=== PATIENT | female | born 1960 | race Caucasian/White ===

== ENCOUNTER → 2018-07-19 | Outpatient (CLI) | payer OTHER | END | disposition home or self-care (01) | LOC: LAB EV 16:14 → LAB SHORT 16:14 | DX: L08.89 Other specified local infections of the skin and subcutaneous tissue (principal) | CPT/HCPCS: 87070; 87075; 87077; 87147; 87186; 87205 ==

== ENCOUNTER → 2018-10-26 | Outpatient (CLI) | payer OTHER ==
[2018-10-30 15:07] LABS: HPV 16 Negative (Negative); HPV 18 Negative (Negative); HPV OTHER HR TYPES Positive (Negative)
== END | disposition home or self-care (01) ==
LOC: LAB 16:33 → LAB SHORT 16:33
PROVIDERS: Nurse Practitioner Women's Health
DX: Z12.4 Encounter for screening for malignant neoplasm of cervix (principal); Z91.89 Other specified personal risk factors, not elsewhere classified
CPT/HCPCS: 87624; 87625; G0123

== ENCOUNTER → 2018-11-09 | Outpatient (CLI) | payer OTHER ==
[2018-11-09 15:04] LABS: Creatinine, Urine Random 88.3 mg/dL (27.00-270.00); Protein, Urine Random 10.8 mg/dL (0.0-11.9)
== END | disposition home or self-care (01) ==
LOC: LAB 13:55 → LAB SHORT 13:55
PROVIDERS: Internal Medicine
DX: N18.3 Chronic kidney disease, stage 3 (moderate) (principal)
CPT/HCPCS: 82570; 84156

== ENCOUNTER 2020-01-10 17:24 | Inpatient (IN) | payer OTHER ==
[~2020-01-10] VITALS: Ht 162.6 cm; Wt 82.9 kg
[2020-01-10] MEDS ORDERED: PROG100 PO (18:29)
[2020-01-10] MEDS ORDERED: LIPITOR80 MG PO (18:29)
[2020-01-10] MEDS ORDERED: LOSARTAN POTASS25 M2 PO (18:29)
[2020-01-10] MEDS ORDERED: OZEMPIC0.25 MG/0. PO (18:29)
[2020-01-10] MEDS ORDERED: PLAVIX75 MG PO (18:29)
[2020-01-10] MEDS ORDERED: BUPROPION XL150 M1 PO (18:30)
[2020-01-10] MEDS ORDERED: METO50ER PO (18:31)
[2020-01-10] MEDS ORDERED: Isosorbide Mono60 MG PO (18:31)
[2020-01-10 18:32] LABS: BASOPHILS ABSOLUTE AUTO 0.08 K/mm3 (0.00-0.23); BASOPHILS PERCENT AUTO 1 % (0-2); EOSINOPHILS ABSOLUTE AUTO 0.24 K/mm3 (0.00-0.68); EOSINOPHILS PERCENT AUTO 2 % (0-6); Hematocrit 40.9 % (33.0-51.0); Hemoglobin 13.1 g/dL (11.5-16.0); IMMATURE GRAN ABSOLUTE AUTO 0.04 K/mm3 (0.00-0.10); IMMATURE GRAN PERCENT AUTO 0 % (0-1); LYMPHOCYTES ABSOLUTE AUTO 2.43 K/mm3 (0.84-5.20); LYMPHOCYTES PERCENT AUTO 23 % (21-46); MONOCYTES ABSOLUTE AUTO 0.92 K/mm3 (0.16-1.47); MONOCYTES PERCENT AUTO 9 % (4-13); Mean Corpuscular HGB 29.4 pg (26.0-34.0); Mean Corpuscular Volume 92 fL (80-100); Mean Platelet Volume 9.7 fL (9.1-12.4); NEUTROPHILS ABSOLUTE AUTO 7.02 K/mm3 (1.96-9.15); NEUTROPHILS PERCENT AUTO 66 % (41-73); Platelet Count 269 K/mm3 (150-400); RDW Coefficient Variation 16.1 % (11.7-14.2); Red Blood Cell Count 4.46 M/mm3 (3.80-5.20); White Blood Cell Count 10.73 K/mm3 (4.00-11.30)
[2020-01-10 18:59] LABS: Albumin, Blood 3.5 g/dL (3.4-5.0); Albumin/Globulin Ratio 0.9 (0.8-1.8); Bilirubin, Total 1.1 mg/dL (0.1-1.0); Bun/Creatinine Ratio 22.1 (12.0-20.0); Calcium, Blood 9.2 mg/dL (8.5-10.1); Creatinine, Blood 1.04 mg/dL (0.40-1.00); Globulin, Blood 3.7 g/dL (2.2-4.0); Potassium, Blood 4.5 mmol/L (3.5-5.5); Total Protein, Blood 7.2 g/dL (6.4-8.2)
[2020-01-10 19:02] LABS: Troponin I 0.459 ng/mL (0.000-0.040)
[2020-01-10] MEDS ORDERED: SITA100T2 PO (21:05)
[2020-01-10] MEDS ORDERED: Fish Oil Conc1000 MG PO (21:06)
[2020-01-10] MEDS ORDERED: Vitamin D2000 UNIT PO (21:06)
[2020-01-10] MEDS ORDERED: OMEP20ER PO (21:06)
[2020-01-10] MEDS ORDERED: Aspirin EC81 MG PO (21:06)
[2020-01-10 23:08] LABS: D-Dimer, Quantitative 2.97 mg/L FEU (0.00-0.52)
[2020-01-10 23:14] LABS: Troponin I 0.474 ng/mL (0.000-0.040)
--- NOTE | 2020-01-11 05:34 | NUR ---
SHIFT SUMMARY PT NEW ED ADMIT THIS EVENING. PT SOB WITH EXERTION. O2 SATS IN THE MID 80'S ON 2 L WHEN ARRIVING TO ROOM. PT PLACED ON 4-5 L TO GET O2 SATS GREATER THAN 90%. PT ABLE TO AMBULATE WELL TO THE RESTROOM. TAKES A FEW MOMENTS TO RECOVER WITH SOB ONCE BACK TO BED. PT DOES REPORT SOME CHEST PAIN THAT SHE DESCRIBES MORE LIKE "LUNG PAIN". MORE PAINFUL WITH DEEP BREATHS. MEDICATED X 1 W/ FENTANYL 25 MCG WHICH PT REPORTED WAS EFFECTIVE. D-DIMER ELEVATED THIS EVENING. PT TAKEN FOR CT FOR R/O PE. HEPARIN DRIP STARTED ALSO DUE TO PT'S ANGINA AND HX OF TX W/ STENTS. TELEMETRY SR W/ PAC'S IN THE 80'S. LASIX GIVEN PER ORDERS WITH GOOD OUTPUT THIS SHIFT. PT RESTING IN BED AT THIS TIME. VITAL SIGNS STABLE. WILL CONTINUE TO MONITOR AND REPORT TO DAY RN.
[2020-01-11 09:01] LABS: Albumin, Blood 3.5 g/dL (3.4-5.0); Bilirubin, Total 1.3 mg/dL (0.1-1.0); Bun/Creatinine Ratio 20.6 (12.0-20.0); Calcium, Blood 9.2 mg/dL (8.5-10.1); Creatinine, Blood 1.26 mg/dL (0.40-1.00); Globulin, Blood 3.5 g/dL (2.2-4.0); Potassium, Blood 3.9 mmol/L (3.5-5.5); Troponin I 0.42 ng/mL (0.000-0.040)
[2020-01-11 09:54] LABS: Hematocrit 40.6 % (33.0-51.0); Hemoglobin 12.7 g/dL (11.5-16.0); Mean Corpuscular HGB 29.1 pg (26.0-34.0); Mean Corpuscular HGB Conc 31.3 g/dL (31.5-36.5); Mean Corpuscular Volume 93 fL (80-100); Mean Platelet Volume 10.3 fL (9.1-12.4); Platelet Count 264 K/mm3 (150-400); RDW Standard Deviation 54.2 fL (35.1-46.3); Red Blood Cell Count 4.37 M/mm3 (3.80-5.20)
--- NOTE | 2020-01-11 11:32 | NUR ---
DR. MADRID AT BEDSIDE. PATIENT CONSENTED FOR ANGIOGRAM LATER TODAY. HEPARIN GTT STOPPED PER HIS VERBAL ORDER; PAM IN PHARMACY NOTIFIED VIA [employer].
--- NOTE | 2020-01-11 16:13 | NUR ---
Echocardiogram completed.
--- NOTE | 2020-01-11 18:17 | NUR ---
SHIFT SUMMARY PT ALERT AND ORIENTED. VS STABLE. HR NSR. BP STABLE. PT DENIES ANY CP/PRESSURE. RIGHT RADIAL SITE FREE FROM ANY BRUISING, BLEEDING, OR HEMATOMA NOTED. 4ML OF AIR HAVE BEEN REMOVED FROM TR BAND. PT SITTING UP EATING DINNER. WILL CONTINUE TO MONITOR AND REPORT TO ONCOMING RN. CALL LIGHT IN REACH.
--- NOTE | 2020-01-12 05:35 | NUR ---
END OF SHIFT SUMMARY NO ACUTE CHANGES THIS SHIFT. VSS. TR BAND FULLY RECOVERED AND REMOVED AT 1999. REMAINS ON 3LNC. REMAINS SR. DENIES CP/PRESSURE EXCEPT FOR INSTANCE AT 0400, NITRO PER EMAR. OTHERWISE, PT HAS BEEN RESTING OFF AND ON T/O THE SHIFT AND HAS BEEN UP AND OUT OF BED AT TIMES. WILL CONTINUE TO MONITOR UNTIL SHIFT CHANGE.
--- NOTE | 2020-01-12 19:41 | NUR ---
SHIFT SUMMARY PT A&Ox4; CALM AND COOPERATIVE WITH CARE. PT RESTING IN BED FOR MAJORITY OF SHIFT, UP IND IN ROOM. PT ON 3L O2 VIA NC THIS AM, TITRATED TO 1L PT C/O CHEST TIGHTNESS; TITRATED TO 2L O2 VIA NC WITH RELEIFE. HOME O2 EVAL COMPLTED WITH PLANS FOR DISCHARGE TOMORROW; 2L O2 VIA NC AT ALL TIMES, FORMS FAXED TO [facility] THIS AFTERNOON. PT REPORTS SOB WITH ACTIVITY. PT DENIES PAIN, NAUSEA AND DIZZINESS T/O SHIFT. PT RECEIVIGN IV LASIX; EDUCATED PT ON I&O AND ENCOURAGED PT TO USE HAT TO MEASURE OUTPUT. VSS. NO OTHER ACUTE CHANGES NOTED DURING SHIFT. REPORT GIVEN TO ONCOMING RN.
[2020-01-13 04:44] LABS: Bun/Creatinine Ratio 26.2 (12.0-20.0); Calcium, Blood 9.1 mg/dL (8.5-10.1); Creatinine, Blood 1.45 mg/dL (0.40-1.00); Potassium, Blood 3.7 mmol/L (3.5-5.5)
--- NOTE | 2020-01-13 07:12 | NUR ---
SHIFT SUMMARY PATIENT PLEASENT AND COOPERATIVE THROUGHOUT THE NIGHT. PATIENT INDEPENDENT IN ROOM. PATIENT MEDICATED FOR PAIN PER EMAR. PATIENT APPEARED TO SLEEP WELL LAST NIGHT. PATIENT ON 2-4L OF O2 DEPENDING ON ACTIVITY. REPORT GIVEN TO ONCOMING RN.
[2020-01-13] MEDS ORDERED: POTCHL20ER PO (12:55)
[2020-01-13] MEDS ORDERED: FURO40 PO (12:55)
--- NOTE | 2020-01-13 15:27 | NUR ---
DISCHARGE SUMMARY PT A&Ox4; CALM AND COOPERATIVE WITH CARE. PT RESTING IN BED; UP IND IN ROOM. PT DENIES PAIN; CHEST PAIN/PRESSURE; NAUSEA AND DIZZZINESS. PT SOB WITH EXERTION; ON 2L O2 VIA NC AT ALL TIMES; HOME O2 EVAL COMPLETED AND PORTABLE O2 TANKS PROVIDED FROM [facility]. TELE SR 60-70'S. PT RECEIVING IV LASIS. BP THIS AFTERNOON TRENDING DOWN, MAP 55; ASSYMPTOMATIC; NOTIFIED DR HUYNH; NO NEW ORDERS; CONTINUE WITH DISCHARGE PLANS. OTHER VSS. NO OTHER ACUTE CHANGES NOTED DURING SHIFT. EDUCATED PT ON DISCHARGE INSTRUCTIONS; MEDICATIONS AND FOLLOW UP APPOINTMENTS. PT EDUCATED ON ACTIVITY LEVELS; TO REST; PT STATES SHE HAS MULTIPLE FAMILY MEMEBERS TO ASSIST HER AT HOME AND NO DRIVING UNTIL CLEARED FROM CARDIOLOGY. PRESCRIPTIONS CALLED INTO [facility]. PT LEFT ROOM VIA WHEELCHAIR AT 1355.
== END 2020-01-13 13:05 | disposition home or self-care (01) | DRG 280 ==
LOC: ER 17:24 → MEDS 20:32 → PCU 01-11 15:28
PROVIDERS: Internal Medicine; Physician Assistant; ADMIT Internal Medicine
PROC: 4A020N7 Measurement of Cardiac Sampling and Pressure, Left Heart, Open Approach (ICD-10-PCS; principal; 2020-01-11)
PROC: B2111ZZ Fluoroscopy of Multiple Coronary Arteries using Low Osmolar Contrast (ICD-10-PCS; 2020-01-11)
DX: I21.4 Non-ST elevation (NSTEMI) myocardial infarction (principal); J96.01 Acute respiratory failure with hypoxia; I13.0 Hypertensive heart and chronic kidney disease with heart failure and stage 1 through stage 4 chronic kidney disease, or unspecified chronic kidney disease; J81.1 Chronic pulmonary edema; I25.10 Atherosclerotic heart disease of native coronary artery without angina pectoris; J43.9 Emphysema, unspecified; E78.5 Hyperlipidemia, unspecified; E11.22 Type 2 diabetes mellitus with diabetic chronic kidney disease; N18.3 Chronic kidney disease, stage 3 (moderate); I50.9 Heart failure, unspecified; I08.1 Rheumatic disorders of both mitral and tricuspid valves; R09.02 Hypoxemia; Z95.2 Presence of prosthetic heart valve; Z87.01 Personal history of pneumonia (recurrent); Z95.5 Presence of coronary angioplasty implant and graft; Z87.891 Personal history of nicotine dependence; E66.9 Obesity, unspecified; Z68.30 Body mass index [BMI] 30.0-30.9, adult
CPT/HCPCS: 36415; 71045; 71260; 76937; 80048; 80053; 82550; 82947; 83690; 83880; 84484; 85025; 85027; 85379; 85730; 93005; 93010; 93306; 93454; 94644; 94660; 94761; 94762; 96374; 99152; 99153; 99285-25; A9270; A9270-GY; C1769; C1894; J1644; J1650; J1885; J1940; J2250; J3010; J7030; Q9967

== ENCOUNTER 2020-02-25 09:25 | Emergency (ER) | payer OTHER ==
[~2020-02-25] VITALS: Ht 162.6 cm; Wt 73.5 kg
[~2020-02-25 09:25] MED LIST: Aspirin EC81 MG PO; BUPROPION XL150 M1 PO; FURO40 PO; Fish Oil Conc1000 MG PO; Isosorbide Mono60 MG PO; LIPITOR80 MG PO; LOSARTAN POTASS25 M2 PO; METO50ER PO; OMEP20ER PO; OZEMPIC0.25 MG/0. PO; PLAVIX75 MG PO; POTCHL20ER PO; PROG100 PO; SITA100T2 PO; Vitamin D2000 UNIT PO
[2020-02-25 10:13] LABS: BASOPHILS ABSOLUTE AUTO 0.03 K/mm3 (0.00-0.23); BASOPHILS PERCENT AUTO 0 % (0-2); EOSINOPHILS ABSOLUTE AUTO 2.17 K/mm3 (0.00-0.68); EOSINOPHILS PERCENT AUTO 20 % (0-6); Hematocrit 35.2 % (33.0-51.0); Hemoglobin 10.8 g/dL (11.5-16.0); IMMATURE GRAN ABSOLUTE AUTO 0.04 K/mm3 (0.00-0.10); IMMATURE GRAN PERCENT AUTO 0 % (0-1); LYMPHOCYTES ABSOLUTE AUTO 1.54 K/mm3 (0.84-5.20); LYMPHOCYTES PERCENT AUTO 14 % (21-46); MONOCYTES ABSOLUTE AUTO 0.79 K/mm3 (0.16-1.47); MONOCYTES PERCENT AUTO 7 % (4-13); Mean Corpuscular HGB 30.2 pg (26.0-34.0); Mean Corpuscular HGB Conc 30.7 g/dL (31.5-36.5); Mean Corpuscular Volume 98 fL (80-100); Mean Platelet Volume 8.8 fL (9.1-12.4); NEUTROPHILS ABSOLUTE AUTO 6.18 K/mm3 (1.96-9.15); NEUTROPHILS PERCENT AUTO 58 % (41-73); Platelet Count 428 K/mm3 (150-400); RDW Coefficient Variation 20.3 % (11.7-14.2); Red Blood Cell Count 3.58 M/mm3 (3.80-5.20); White Blood Cell Count 10.75 K/mm3 (4.00-11.30)
[2020-02-25 10:32] LABS: Albumin, Blood 3.2 g/dL (3.4-5.0); Albumin/Globulin Ratio 0.8 (0.8-1.8); Bilirubin, Total 0.8 mg/dL (0.1-1.0); Bun/Creatinine Ratio 13.2 (12.0-20.0); Calcium, Blood 9.1 mg/dL (8.5-10.1); Creatinine, Blood 1.29 mg/dL (0.40-1.00); Potassium, Blood 3.5 mmol/L (3.5-5.5); Total Protein, Blood 7.2 g/dL (6.4-8.2)
[2020-02-25 10:35] LABS: Prothrombin Time Results 67.9 Sec (9.7-11.5)
[2020-02-25 10:42] LABS: International Normalized Ratio 7.09
[2020-02-25 10:44] LABS: Troponin I 0.547 ng/mL (0.000-0.040)
== END 2020-02-25 14:12 | disposition home or self-care (01) ==
LOC: ER 09:25
PROVIDERS: Emergency Medicine
DX: R07.9 Chest pain, unspecified (principal); M54.9 Dorsalgia, unspecified; R79.1 Abnormal coagulation profile; Z87.891 Personal history of nicotine dependence
CPT/HCPCS: 36415; 71046; 80053; 83690; 83880; 84484; 85025; 85610; 93005; 93010; 96374; 99285-25; J2405

== ENCOUNTER 2021-04-09 08:19 | Day surgery (SDC) | payer OTHER ==
[~2021-04-09] VITALS: Ht 160 cm; Wt 75.2 kg
[2021-04-09] MEDS ORDERED: ENOX60I (09:08)
[2021-04-09] MEDS ORDERED: OZEMPIC1 MG/0.72 SC (09:08)
[2021-04-09] MEDS ORDERED: WARF3 PO (09:08)
--- NOTE | 2021-04-09 09:12 | NUR ---
04/09/21 0912 Ben Brock CALL LIGHT WITHIN REACH
== END 2021-04-09 11:08 | disposition home or self-care (01) ==
LOC: ORSCSDS 08:19
PROVIDERS: Obstetrics & Gynecology
PROC: 0UBC7ZX Excision of Cervix, Via Natural or Artificial Opening, Diagnostic (ICD-10-PCS; principal; 2021-04-09 09:45)
DX: R87.810 Cervical high risk human papillomavirus (HPV) DNA test positive (principal); N72 Inflammatory disease of cervix uteri; I21.9 Acute myocardial infarction, unspecified; I25.2 Old myocardial infarction; E11.22 Type 2 diabetes mellitus with diabetic chronic kidney disease; I12.9 Hypertensive chronic kidney disease with stage 1 through stage 4 chronic kidney disease, or unspecified chronic kidney disease; N18.30 Chronic kidney disease, stage 3 unspecified; J44.9 Chronic obstructive pulmonary disease, unspecified; K21.9 Gastro-esophageal reflux disease without esophagitis; Z79.82 Long term (current) use of aspirin; Z79.899 Other long term (current) drug therapy
CPT/HCPCS: 82947; 88305; J0171; J0690; J2704; J3010; J7120

== ENCOUNTER 2025-01-24 18:56 | Emergency (ER) | payer OTHER ==
[~2025-01-24] VITALS: Ht 165.1 cm; Wt 68.0 kg
[~2025-01-24 18:56] MED LIST changes: +ENOX60I; +OZEMPIC1 MG/0.72 SC; +WARF3 PO
[2025-01-24 19:52] LABS: BASOPHILS ABSOLUTE AUTO 0.06 K/mm3 (0.00-0.23); BASOPHILS PERCENT AUTO 1 % (0-2); EOSINOPHILS ABSOLUTE AUTO 0.23 K/mm3 (0.00-0.68); EOSINOPHILS PERCENT AUTO 3 % (0-6); Hematocrit 43.1 % (33.0-51.0); Hemoglobin 13.7 g/dL (11.5-16.0); IMMATURE GRAN ABSOLUTE AUTO 0.03 K/mm3 (0.00-0.10); IMMATURE GRAN PERCENT AUTO 0 % (0-1); LYMPHOCYTES ABSOLUTE AUTO 2.17 K/mm3 (0.84-5.20); LYMPHOCYTES PERCENT AUTO 28 % (21-46); MONOCYTES ABSOLUTE AUTO 0.59 K/mm3 (0.16-1.47); MONOCYTES PERCENT AUTO 8 % (4-13); Mean Corpuscular HGB 27.7 pg (26.0-34.0); Mean Corpuscular HGB Conc 31.8 g/dL (31.5-36.5); Mean Corpuscular Volume 87 fL (80-100); Mean Platelet Volume 8.8 fL (9.1-12.4); NEUTROPHILS ABSOLUTE AUTO 4.77 K/mm3 (1.96-9.15); NEUTROPHILS PERCENT AUTO 61 % (41-73); Platelet Count 283 K/mm3 (150-400); RDW Coefficient Variation 15.4 % (11.7-14.2); Red Blood Cell Count 4.94 M/mm3 (3.80-5.20); White Blood Cell Count 7.85 K/mm3 (4.00-11.30)
[2025-01-24 20:14] LABS: Albumin, Blood 3.2 g/dL (3.4-5.0); Albumin/Globulin Ratio 0.9 (0.8-1.8); Bilirubin, Total 0.4 mg/dL (0.1-1.0); Bun/Creatinine Ratio 21.5 (12.0-20.0); Calcium, Blood 9.1 mg/dL (8.5-10.1); Creatinine, Blood 1.21 mg/dL (0.40-1.00); Globulin, Blood 3.5 g/dL (2.2-4.0); Total Protein, Blood 6.7 g/dL (6.4-8.2)
[2025-01-25 00:58] LABS: International Normalized Ratio 1.5; Prothrombin Time Results 15.6 Sec (9.7-11.5)
[2025-01-25 01:00] VITALS: BP 148/80
== END 2025-01-25 01:23 | disposition home or self-care (01) ==
LOC: ER 18:56
PROVIDERS: Student in an Organized Health Care Education/Training Program
DX: Z01.01 Encounter for examination of eyes and vision with abnormal findings (principal); R79.1 Abnormal coagulation profile; E11.9 Type 2 diabetes mellitus without complications; E78.5 Hyperlipidemia, unspecified; I10 Essential (primary) hypertension; Z86.73 Personal history of transient ischemic attack (TIA), and cerebral infarction without residual deficits; Z87.891 Personal history of nicotine dependence; Z79.01 Long term (current) use of anticoagulants; Z79.82 Long term (current) use of aspirin; Z79.899 Other long term (current) drug therapy; Z88.5 Allergy status to narcotic agent; Z88.8 Allergy status to other drugs, medicaments and biological substances
CPT/HCPCS: 70496; 70498; 80053; 85025; 85610; 93005; 93010; 99284-25; Q9967